=== PATIENT | female | born 1995 | race Caucasian/White ===

== ENCOUNTER 2019-05-15 12:02 | Emergency (ER) | payer BC ==
[2019-05-15 12:38] VITALS: BP 141/76
--- NOTE | 2019-05-15 12:49 | UC ---
Throat Pain/Nasal Bubba HPI - HPI Summary HPI Summary: 23-year-old female whose had a sore throat over the past 2 days. - History of Current Complaint Chief Complaint: UCGeneralIllness Stated Complaint: THROAT COMPLAINT Time Seen by Provider: 05/15/19 12:42 Hx Obtained From: Patient Hx Last Menstrual Period: 05/08/19 ?: No Onset/Duration: Gradual Onset Severity: Moderate Pain Intensity: 8 Cough: None - Allergies/Home Medications Allergies/Adverse Reactions: Allergies Allergy/AdvReac Type Severity Reaction Status Date / Time No Known Allergies Allergy Verified 05/15/19 12:36 Home Medications: Home Medications Ibuprofen TAB* [Motrin TAB* 400 MG] 400 mg PO Q6H PRN 05/15/19 [History Confirmed 05/15/19] PMH/Surg Hx/FS Hx/Imm Hx Previously Healthy: Yes - Surgical History Surgical History: None - Family History Known Family History: Positive: Non-Contributory - Social History Alcohol Use: Rare Substance Use Type: None Smoking Status (MU): Never Smoked Tobacco Review of Systems All Other Systems Reviewed And Are Negative: Yes ENT: Positive: Sore Throat Is Patient Immunocompromised?: No Physical Exam Triage Information Reviewed: Yes Appearance: Well-Appearing, No Pain Distress, Well-Nourished Vital Signs: Initial Vital Signs Temp 97.4 F 05/15/19 12:35 Pulse 88 05/15/19 12:35 Resp 14 05/15/19 12:35 BP 141/76 05/15/19 12:35 Pulse Ox 100 05/15/19 12:35 Vital Signs Reviewed: Yes Eyes: Positive: Conjunctiva Clear ENT: Positive: Pharyngeal erythema - Mild left tonsillar erythema with an aphthous ulcer present which measures approximately 5 mm in diameter., TMs normal, Uvula midline. Negative: Trismus, Muffled voice, Hoarse voice Neck: Positive: Supple, No Lymphadenopathy Respiratory: Positive: Lungs clear, Normal breath sounds, No respiratory distress, No accessory muscle use Cardiovascular: Positive: RRR, No Murmur, Pulses Normal, Brisk Capillary Refill Musculoskeletal Exam: Normal Neurological Exam: Normal Psychological Exam: Normal Skin Exam: Normal Throat Pain/Nasal Course/Dx - Course Course Of Treatment: Patient is comfortable here. Rapid strep test was negative. She is to do warm saltwater gargles and comfort measures and follow-up with her primary care provider if no improvement in 3 or 4 days. - Differential Dx/Diagnosis Provider Diagnosis: Aphthous ulcer of tonsil Discharge ED - Sign-Out/Discharge Documenting (check all that apply): Patient Departure All imaging exams completed and their final reports reviewed: No Studies - Discharge Plan Condition: Good Disposition: HOME Patient Education Materials: [employer] Woo (ED) Referrals: Ita Caldwell PA [Primary Care Provider] - Additional Instructions: Warm, salt water gargles, throat lozenges, Tylenol every 4 hours for pain and may alternate every 8 hours with Motrin. Follow up with your primary care provider in 3-4 days if no improvement. - Billing Disposition and Condition Condition: GOOD Disposition: Home
== END 2019-05-15 12:56 | disposition home or self-care (01) ==
LOC: UCCORT 12:02
DX: K12.0 Recurrent oral aphthae (principal)
CPT/HCPCS: 87651; 99201; G0463